=== PATIENT | male | born 1975 | race Two or more races ===

== ENCOUNTER → 2024-05-25 | Outpatient (CLI) | payer OTHER, MEDICAID, SELFPAY | END | disposition home or self-care (01) | PROVIDERS: PCP Family Medicine; Referring Provider Family Medicine; Visit Provider Student in an Organized Health Care Education/Training Program | DX: L89.319 Pressure ulcer of right buttock, unspecified stage (principal); L89.313 Pressure ulcer of right buttock, stage 3; F17.200 Nicotine dependence, unspecified, uncomplicated; D64.9 Anemia, unspecified; G82.20 Paraplegia, unspecified; Q89.01 Asplenia (congenital) | CPT/HCPCS: 11042; 11045 ×2; A9270 ==

== ENCOUNTER 2024-06-25 10:51 | Emergency (ER) | payer OTHER, MEDICAID, SELFPAY ==
[2024-06-25 10:53] VITALS: BP 132/89; PULSE 86; RESP 18; TEMP 36.6; O2SAT 100; BMI 25.7
--- NOTE | 2024-06-25 11:00 | PC.NURSE ---
Pt [place] from home, pt paraplegic. states that he woke up and his catheter was partially out and that he had blood coming from his penis so he pulled it the rest of the way out.
--- NOTE | 2024-06-25 11:28 | EDNOTE_ITS ---
ED Male Genitalurinary RME/HPI General Chief complaint: Urogenital-Male Stated complaint: BLEEDING FROM PENIS Time Seen by Provider: 06/25/24 11:04 Arrival date/time: 06/25/24 10:51 RME / HPI RME / HPI Narrative: 49-year-old male patient, T10 paraplegia, came in with EMS for evaluation regarding Douglas catheter malfunction. Patient noticed that his catheter is almost out, woke up this morning, with completely out, and hematuria. Patient now complaining of suprapubic distention. Denies any fever denies any other complaints no medications taken prior to arrival. Related Data Home Medications ?Medication ?Instructions ?Recorded ?Confirmed diphenhydramine HCl 25 mg capsule 25 mg PO Q6HR PRN SLEEPLESSNESS #0 06/20/17 02/15/23 caps Previous Rx's ?Medication ?Instructions ?Recorded levofloxacin 500 mg tablet 500 mg PO QDAY #7 tabs 02/19/23 melatonin 5 mg capsule 5 mg PO HS PRN insomnia 30 days 03/10/23 #30 caps ciprofloxacin HCl 500 mg tablet 500 mg PO BID #14 tabs 02/25/24 cefuroxime axetil 500 mg tablet 500 mg PO BID #20 tabs 06/25/24 doxycycline hyclate 100 mg capsule 100 mg PO BID #20 caps 06/25/24 Allergies Allergy/AdvReac Type Severity Reaction Status Date / Time No Known Allergies Allergy Verified 06/25/24 11:28 Review of Systems Review of Systems Narrative Review of Systems: Review of system reviewed and within normal limits except mentioned in HPI ED Exam Narrative Physical exam: VITAL SIGNS: Reviewed. GENERAL APPEARANCE: Alert and interactive, follows commands, no acute distress, HEAD AND FACE: Non-traumatic. ENT: PERRL, pink conjunctivitis, eyelid no trauma, Mucous membrane moist. NECK: Supple, nontender, no nuchal rigidity. CHEST: No tenderness, no crepitus, no paradoxical movement, no retractions. LUNGS: Clear, well ventilated, symmetric, no rales, no wheezing, no ronchi, no stridor, good breath sounds bilaterally. HEART: Regular rate, regular rhythm, no murmur, no gallops. ABDOMEN: Soft, positive bowel sounds, nondistended, no guarding, nontender, no rebound, no masses, RECTAL: Chronic ulcer noted with good granulation tissue noted on the right but tock area GENITAL: Deferred. NEUROLOGICAL: Gross motor function intact sensory function intact upper extremity, no gross motor movement and anesthesia T10 and below, Appropriate for age. MUSCULOSKELETAL: low back nontender, full range of motion. EXTREMITIES: Nontender, full range of motion. SKIN: Color pink, dry, no rash, no lacerations, no abrasions, no contusions. LYMPHATICS: Deferred. Course Quality Measures none Orders Category Date Time Status Douglas [Urinary Catheter] QS Care 06/25/24 11:[address] abdomen pelvis wo con Stat Exams 06/25/24 14:45 Completed Blood Culture (Lab) Stat Lab 06/25/24 16:26 Ordered CBC [CBC] Stat Lab 06/25/24 11:28 Ordered CMP [Comprehensive Metabolic Panel] Stat Lab 06/25/24 11:28 Ordered Lactate (Lactic Acid) Stat Lab 06/25/24 16:26 Ordered Procalcitonin Stat Lab 06/25/24 16:26 Ordered UA, C/S IF [Urinalysis, C/S if Indicated] Stat Lab 06/25/24 15:22 Completed Acetaminophen Supp [Tylenol Supp] Med 06/25/24 16:26 Discontinued 650 mg NM X1 ONE HYDROcodone/APAP 10/325 [Lutcher 10/325] Med 06/25/24 14:45 Discontinued 1 tab PO X1 ONE Lidocaine 1% Pf 5 ml [Xylocaine 1% Pf 5 ml] Med 06/25/24 16:35 Discontinued 2 ml INFL X1 ONE Sodium Chloride 0.9% 1000 ml [Ns] 1,000 ml Med 06/25/24 13:00 Discontinued IV 999 mls/hr cefTRIAXone [Rocephin] 1,000 mg Med 06/25/24 16:36 Discontinued Lidocaine 1% 20 ml [Xylocaine 1% 20 ML] 2.1 ml IM X1 Vital Signs Vital signs: Vital Signs Temperature 97.8 F 06/25/24 10:53 Pulse Rate 86 06/25/24 10:53 Respiratory Rate 18 06/25/24 10:53 Blood Pressure 132/89 H 06/25/24 10:53 Pulse Oximetry (%) 100 06/25/24 10:53 Oxygen Delivery Method Room Air 06/25/24 10:53 Urogenital - Male MDM Narrative MDM Narrative:: 49-year-old male patient, T10 paraplegia, came in with EMS for evaluation regarding Douglas catheter malfunction. Patient noticed that his catheter is almost out, woke up this morning, with completely out, and hematuria. Patient now complaining of suprapubic distention. Denies any fever denies any other complaints no medications taken prior to arrival. Patient refused IV lab draws. CT scan of the abdomen pelvis showed Again noted 6.5 cm pleural base mass left lower lobe Interval numerous pulmonary nodules at the left lung base, the largest 11 mm, recommend CT chest without contrast follow-up to exclude interval pulmonary nodular metastatic disease Mild to moderate bilateral renal parenchymal scar formation, no renal calculi or ureteral calculi Normal appendix Marked thickening of the urinary bladder wall, consider cystitis, mild hyperdensity in the urinary bladder consistent with blood clot Again noted large infectious mass/abscess with necrotic center in the right buttock region 10.6 x 7.0 x 7.4 cm with osteomyelitis right ischium Patient data External records reviewed:: None Clinical information provided by:: patient Social determinants that could affect healthcare access:: none Patient has the following chronic illnesses:: T10 paraplegia none How is presenting disease/condition affected by chronic disease/condition?: exacerbated by Evaluation data The following diagnostics were reviewed and interpreted by me:: lab results and radiology exam(s) Lab and/or radiology exams considered but not ordered:: None Interpretation Summary: Urinalysis significant for hematuria and UTI. CT scan of the abdomen and pelvis showed Again noted 6.5 cm pleural base mass left lower lobe Interval numerous pulmonary nodules at the left lung base, the largest 11 mm, recommend CT chest without contrast follow-up to exclude interval pulmonary nodular metastatic disease Mild to moderate bilateral renal parenchymal scar formation, no renal calculi or ureteral calculi Normal appendix Marked thickening of the urinary bladder wall, consider cystitis, mild hyperdensity in the urinary bladder consistent with blood clot Again noted large infectious mass/abscess with necrotic center in the right buttock region 10.6 x 7.0 x 7.4 cm with osteomyelitis right ischium Medications / Prescriptions Medications or Prescriptions considered but not ordered:: None Medication administrations:: Medication Administration History Discontinued Medications Acetaminophen (Acetaminophen Supp 650 Mg Supp) 650 mg NM X1 ONE Stop: 06/25/24 16:27 Last Admin: 06/25/24 16:58 Dose: 650 mg Documented By: Hydrocodone Bitart/Acetaminophen (Hydrocodone/Apap 10/325 Tab) 1 tab PO X1 ONE Stop: 06/25/24 14:46 Last Admin: 06/25/24 15:18 Dose: 1 tab Documented By: JOSUE Ceftriaxone Sodium 1,000 mg/ (Lidocaine HCl 2.1 ml) 0 mg IM X1 ONE Stop: 06/25/24 16:37 Last Admin: 06/25/24 17:03 Dose: 1,000 mg Documented By: MAO Comments: Sodium Chloride (Ns) 1,000 mls @ 999 mls/hr IV .Q1H1M ONE Stop: 06/25/24 14:00 Last Admin: 06/25/24 13:17 Dose: Not Given Documented By: JOSUE Non-Admin Reason: Patient Refused Lidocaine HCl (Lidocaine Inj Pf 1% 5 Ml Vial) 2 ml INFL X1 ONE Stop: 06/25/24 16:36 Last Admin: 06/25/24 17:02 Dose: Not Given Documented By: MAO Non-Admin Reason: Other, see note Ceftriaxone IM, Tylenol suppositories, Lutcher Consultations Consultation(s) initiated? (list below): No Diagnosis Urogenital Male Differential Diagnosis: urinary tract infection and other (Abdominal pain, dislodgment of Douglas catheter) Most likely diagnosis given after review of the tests above:: Dislodgment of Douglas catheter, urinary tract infection, chronic pressure ulcer buttocks Admission Indicated Admission indicated?: not indicated Admission Request Was there a request for admission?: No Disposition Plan Disposition Plan: other (specify) (Patient discharged AGAINST MEDICAL ADVICE) Discharge Plan Plan Patient Disposition: Left Against Medical Advice Prescriptions/Referrals Prescriptions/Med Rec: New doxycycline hyclate 100 mg capsule 100 mg PO BID Qty: 20 0RF cefuroxime axetil 500 mg tablet 500 mg PO BID Qty: 20 0RF No Action diphenhydramine HCl 25 MG capsule 25 mg PO Q6HR PRN (Reason: SLEEPLESSNESS) Qty: 0 levofloxacin 500 mg tablet 500 mg PO QDAY Qty: 7 0RF ciprofloxacin HCl 500 mg tablet 500 mg PO BID Qty: 14 0RF melatonin 5 mg capsule 5 mg PO HS PRN (Reason: insomnia) 30 Days Qty: 30 2RF Referrals: Danis Yan MD [Primary Care Provider] - In 1 week Problem List Clinical Impression: Dislodged Douglas catheter, UTI (urinary tract infection), Paraplegia, complete Patient/Caregiver Discharge Instructions Print Language: Divehi
--- NOTE | 2024-06-25 12:23 | PC.NURSE ---
AFTER MULTIPLE ATTEMPTS TO REACH DISTRIBUTION, DISTRIBUTION WILL SEND UP A CATH PLUG IN ORDER TO DO 3 WAY CATH. PT CONTINUES TO REFUSE LABS.
[2024-06-25 13:00] VITALS: BP 134/80; PULSE 79; RESP 18; TEMP 36.5; O2SAT 100
--- NOTE | 2024-06-25 13:17 | PC.NURSE ---
Pt refused IV for fluids, provider made aware. Pt given pitcher of water to drink. 3-way catheter placed by CONNIE Ramirez, urine was coming out until plug inserted, then urine stopped all together. Attempting to hydrate pt, to see if pt is producing urine.
[2024-06-25 14:44] VITALS: TEMP 37.3
--- NOTE | 2024-06-25 14:45 | XR_ITS ---
Examination: CT abdomen and pelvis without contrast. Coronal 3-D reconstructions. Sagittal 2-D reconstructions. Date and time of exam:June 25, 2024 1530 hrs. Indications: Generalized abdominal pain beginning today CTDI: vol (mGy): 8.99 DLP: (mGycm): 604 Technique: Axial images of the abdomen have been obtained, 3 mm slice thickness Intravenous contrast material has not been administered. Low dose protocols were performed. One or more of the following dose reduction techniques were used; automated exposure control, adjustment of the mA and/or KV according to patient size, use of iterative reconstruction technique. Findings: Again noted 6.5 cm pleural-based mass left lower lobe with numerous new pulmonary nodules in the left lower lobe No interval liver lesion Suspicious for gallbladder sludge No pancreatic or adrenal mass Mild to moderate bilateral renal parenchymal scar formation No renal or ureteral calculi Aorta normal size IVC filter Normal appendix No bowel obstruction Marked thickening of the urinary bladder wall with subtle hyperdensity in the urinary bladder wall axial image 212, urinary Douglas catheter Transverse prostate dimension 4.4 cm Again noted right buttock perineal large infectious mass with necrotic center, the mass measuring at least 10.6 x 7.0 x 7.4 cm Osteomyelitis right ischium Partial visualization edema in the scrotum Impression: Again noted 6.5 cm pleural base mass left lower lobe Interval numerous pulmonary nodules at the left lung base, the largest 11 mm, recommend CT chest without contrast follow-up to exclude interval pulmonary nodular metastatic disease Mild to moderate bilateral renal parenchymal scar formation, no renal calculi or ureteral calculi Normal appendix Marked thickening of the urinary bladder wall, consider cystitis, mild hyperdensity in the urinary bladder consistent with blood clot Again noted large infectious mass/abscess with necrotic center in the right buttock region 10.6 x 7.0 x 7.4 cm with osteomyelitis right ischium
[2024-06-25] MEDS: HYDROcodone/APAP 10/325 TAB PO (15:18)
[2024-06-25 15:31] LABS: Collection Type, Urine Catheter
[2024-06-25 15:54] LABS: Bacteria,Urine 4+; Bilirubin,Urine Negative (Negative); Blood,Urine 3+ (Negative); Color,Urine Brown (Lt Yel-Yel); Culture Indicated,Urine Contaminated; Glucose, Urine Negative (Negative); Ketones,Urine Negative (Negative); Leukocyte Esterase,Urine Positive (Negative); Nitrite,Urine Negative (Negative); PH,Urine 5.5 (5.0-7.0); Protein,Urine 1+ (Neg - Trace); RBC,Urine 8406 /hpf (0-3); Specific Gravity,Urine 1.011 (1.001-1.035); Squamous Epithelial Cell,Urine 12 /hpf (0-5); Urobilinogen,Urine Negative mg/dL (0.0-1.0); WBC,Urine 172 /hpf (0-5)
[2024-06-25 16:16] VITALS: BP 131/78; PULSE 101; RESP 20; TEMP 38.3; O2SAT 98
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
[2024-06-25 16:27] LABS: Clarity,Urine Cloudy (Clear/Hazy)
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
[2024-06-25 16:58] VITALS: TEMP 38.3
[2024-06-25] MEDS: ACETAMINOPHEN SUPP 650 MG SUPP PR (16:58)
[2024-06-25] MEDS: cefTRIAXone 1,000 MG, LIDOCAINE 1% 20 ML 2.1 ML IM (17:03)
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
[2024-06-25 18:08] VITALS: BP 126/79; PULSE 88; RESP 20; TEMP 37.3; O2SAT 98
== END 2024-06-25 18:23 | disposition left against medical advice (07) ==
PROVIDERS: Nurse Practitioner Family; Emergency Provider Emergency Medicine; PCP Family Medicine
DX: T83.021A Displacement of indwelling urethral catheter, initial encounter (principal); N39.0 Urinary tract infection, site not specified; G82.21 Paraplegia, complete; Y84.6 Urinary catheterization as the cause of abnormal reaction of the patient, or of later complication, without mention of misadventure at the time of the procedure
CPT/HCPCS: 51702; 74176; 80053; 81001; 83605; 84145; 85025; 87040; 96372; 99284; J0696; J3490; A9270

== ENCOUNTER 2024-06-26 20:48 | Emergency (ER) | payer OTHER, MEDICAID, SELFPAY ==
[2024-06-26] VITALS (13 sets, daily range): BP systolic 146–170; BP diastolic 86–105; PULSE 74–86; RESP 21–39; TEMP 37.1; O2SAT 95–100
--- NOTE | 2024-06-26 20:59 | PC.NURSE ---
stroke consult Case # [id number]
--- NOTE | 2024-06-26 21:00 | EDNOTE_ITS ---
Neuro Symptoms Deficit-RME/HPI General Chief Complaint: Weakness Stated Complaint: WEAKNESS Time Seen by Provider: 06/26/24 21:11 Arrival date/time: 06/26/24 20:48 RME / HPI RME / HPI Narrative: Dr. Morel?s Main ED Evaluation: 49yo male who is paraplegic presents to the ED for a chief complaint of neurological symptoms since last night. Patient states he started having LUE weakness and numbness after he left AMA from here yesterday. He reports being unable to swallow. He falls or injuries. He denies any other associated symptoms. No known allergies. Related Data Home Medications ?Medication ?Instructions ?Recorded ?Confirmed diphenhydramine HCl 25 mg capsule 25 mg PO Q6HR PRN SLEEPLESSNESS #0 06/20/17 02/15/23 caps Previous Rx's ?Medication ?Instructions ?Recorded levofloxacin 500 mg tablet 500 mg PO QDAY #7 tabs 02/19/23 melatonin 5 mg capsule 5 mg PO HS PRN insomnia 30 days 03/10/23 #30 caps ciprofloxacin HCl 500 mg tablet 500 mg PO BID #14 tabs 02/25/24 cefuroxime axetil 500 mg tablet 500 mg PO BID #20 tabs 06/25/24 doxycycline hyclate 100 mg capsule 100 mg PO BID #20 caps 06/25/24 Allergies Allergy/AdvReac Type Severity Reaction Status Date / Time No Known Allergies Allergy Verified 06/25/24 11:28 Review of Systems Review of Systems Systems Reviewed: All systems reviewed, normal except as documented Past Medical History Past Medical History NEUROLOGIC: Positive Neurological Disorders, Paralysis and Spinal Cord Injury; Negative Cerebrovascular Accident or Seizures CARDIAC: Negative Cardiac Disorders, Myocardial Infarction, Hypercholesterolemia, Congestive Heart Failure or Hypertension RESPIRATORY: Positive Pulmonary Embolism; Negative Chronic Obstructive Pulmonary Disease (COPD), Asthma, Bronchitis or Pulmonary Edema GASTROINTESTINAL: Negative Gastrointestinal Disorders, Gastrointestinal Bleed, Hemorrhoids or Gastroesophageal Reflux Disease GENITOURINARY: Positive Genitourinary Disorders and Kidney Stones; Negative Renal Disease or Benign Prostatic Hyperplasia REPRODUCTIVE: Negative Testicular Cancer MUSCULOSKELETAL: Positive Musculoskeletal Disorders; Negative Arthritis, Rheumatoid Arthritis, Osteoporosis, Scoliosis or Fibromyalgia ENT: Negative Blind or Deafness ENDOCRINE: Negative Endocrine Disorders, Diabetes Mellitus Type 1, Diabetes Mellitus Type 2, Hyperthyroidism or Hypothyroidism HEMATOLOGIC: Positive Clotting Problems; Negative Blood Disorders, Anemia or Sickle Cell Disease PSYCHO/SOCIAL: Positive Depression and Anxiety; Negative Recreational Drug Use OTHER HISTORY: Positive Hospitalization and Blood Transfusions; Negative Autoimmune Disease, Blood Transfusion Reaction, Anesthesia Reactions, Cancer or Testicular Cancer Family History FAMILY HISTORY: Positive Family Cancer and Family Surgery; Negative Family Psychiatric Problems, Family Respiratory Disorders, Family Cardiac Disorders, Family Gastrointestinal Problems or Family Anesthesia Reaction Surgical History SURGICAL: Positive Cardiac Surgery (Vena cava fliter) Social History SMOKING STATUS: Current every day smoker ED Exam Narrative Physical exam: GENERAL APPEARANCE: alert and oriented x 4, well-developed, well-nourished, is actively vomiting, no acute distress VITALS: All vitals were reviewed and the pulse ox is 95% on room air, which is normal according to my interpretation. HEENT: Normocephalic, atraumatic; pupils equal, round, reactive to light; has rotatory nystagmus; mucous membranes pink, moist; oropharynx clear NECK: Supple LUNGS: CTABL; no wheezes, no rales, no rhonchi HEART: Regular rate, regular rhythm; normal S1, S2; no murmurs ABDOMEN: non distended; normal BS; soft, no tenderness, no guarding, no rebound; no masses, no organomegaly, no hernia BACK: no CVA tenderness EXTREMITIES: atraumatic; no edema; moves BUE without any difficulty; does not move BLE due to being paraplegic NEUROLOGIC: awake; alert and oriented x4; has a left facial droop; sensory deficits to the left face and arm PSYCHIATRIC: appropriate mood and affect SKIN: warm, dry, normal color; no rashes Course Course Course Narrative: 2106: Informed the patient does not want an IV placed at this time. 2144: Discussed case with [Dr. Iyer] from [neurosurgeon from [facility]] regarding [possible transfer]. Discussed patients ED course, exam findings, labs, and radiology results. Agrees to consult. 2157: Discussed case with [Dr. Aggarwal] from [neurologist from [facility]] regarding possible transfer. Discussed patients ED course, exam findings, labs, and radiology results. Accepts the patient for transfer. Quality Measures Suspected type of Stroke: Acute Ischemic Tenecteplase given: Reason(s) TPA not given: Outside the time window not given stroke Orders Category Date Time Status Bedside Blood Glucose NOW Care 06/26/24 21:12 Completed Installer Apprentice NOW Care 06/26/24 21:12 Completed Continuous Pulse Oximetry NOW Care 06/26/24 21:12 Completed EKG (ED ONLY) *Do not use* NOW Care 06/26/24 21:12 Completed In and Out Catheter NEEDED Care 06/26/24 21:12 Completed Insert IV NOW Care 06/26/24 21:12 Completed NIH Stroke Scale now Care 06/26/24 21:12 Completed NPO NOW Care 06/26/24 21:12 Completed Nurse Swallow Screen x1 Care 06/26/24 21:12 Completed Consult to Neurology / Tele-Neurology Routine Cons 06/26/24 21:[address] angio stroke protocol Stat Exams 06/26/24 21:[address] stroke protocol Stat Exams 06/26/24 21:12 Completed EKG (ED Only) Stat Exams 06/26/24 21:12 Draft Alcohol, Blood Medical Stat Lab 06/26/24 22:32 Completed CBC Stat Lab 06/26/24 22:32 Completed Comprehensive Metabolic Panel Stat Lab 06/26/24 22:32 Completed Drug Screen,Urine Stat Lab 06/26/24 22:27 Completed Magnesium Stat Lab 06/26/24 22:32 Completed Partial Thromboplastin Time Stat Lab 06/26/24 22:32 Completed Prothrombin Time with INR Stat Lab 06/26/24 22:32 Completed Troponin I Stat Lab 06/26/24 22:32 Completed Urinalysis Stat Lab 06/26/24 22:27 Completed Aspirin Supp Med 06/26/24 21:26 Discontinued 300 mg GA X1 ONE Vital Signs Vital signs: Vital Signs Pulse Rate 86 06/26/24 20:53 Respiratory Rate 22 H 06/26/24 20:53 Blood Pressure 146/86 H 06/26/24 20:53 Pulse Oximetry (%) 95 06/26/24 20:53 Oxygen Delivery Method Room Air 06/26/24 20:53 Neuro Symptoms / Deficit MDM Narrative MDM Narrative:: Scribe Attestation: 06/26/24 Cass Mosley am scribing for and in the presence of Dr. Morel. Patient data External records reviewed:: [facility] previous records (Per chart review, patient was seen here yesterday for a dislodged latif catheter.) Clinical information provided by:: patient and EMS Social determinants that could affect healthcare access:: none Patient has the following chronic illnesses:: paraplegia, kidney stones How is presenting disease/condition affected by chronic disease/condition?: uneffected by Evaluation data The following diagnostics were reviewed and interpreted by me:: lab results, radiology exam(s) and EKG tracing(s) Lab and/or radiology exams considered but not ordered:: none Interpretation Summary: EKG done at 2153, NSR, rate of 75, left axis deviation, no ectopy, QRS: 142, QTc: 438, no STEMI, according to my interpretation. ---- [place] [facility] Report Signed Patient: ALYSIA FLOWERS Record#: [id number] Birthdate: 1975 Age/Sex: 49 / M Location: [facility] Attending Dr: Ordering Physician: Gregg Morel MD Date of Service: 06/26/24 Procedure(s): CT stroke protocol Accession Number(s): [id number] cc: Kapil Chino MD; Gregg Morel MD~ Examination: CT brain head without contrast. 2-D sagittal coronal reconstructions Date and time of exam: June 26, 2024 2114 hrs. Indications: Stroke alert, onset focal neurologic deficit beginning 2 days ago CTDI: vol (mGy):54.5 DLP: (mGycm):1170 Technique: Multiple CT axial sections of the brain have been obtained, 5 mm slice thickness. Contrast has not been administered. 2-D sagittal, coronal reconstructions have been obtained Low dose protocols were performed. One or more of the following dose reduction techniques were used; automated exposure control, adjustment of the mA and/or KV according to patient size, use of iterative reconstruction technique. Findings: No significant ventricular enlargement. Bilateral acute cerebellar infarcts, the infarct on the left side is large, at least 4.4 x 2.2 cm Intra-axial or extra-axial hemorrhage density is not seen. Mild mass effect upon the fourth ventricle secondary to the left cerebellar infarct Basal cisterns are not remarkable. Fourth ventricle is midline. Cranial vault intact. Impression: Bilateral acute cerebellar infarcts, the infarct on the left side is large, both are nonhemorrhagic Dictated By: Kapil Chino MD Signed By: <Electronically signed by Kapil Chino MD in OV> 06/26/245 Medications / Prescriptions Medications or Prescriptions considered but not ordered:: none Medication administrations:: Medication Administration History Discontinued Medications Aspirin (Aspirin 300 Mg Supp) 300 mg GA X1 ONE Stop: 06/26/24 21:27 Last Admin: 06/26/24 21:50 Dose: 300 mg Documented By: KD see above Consultations Consultation(s) initiated? (list below): Yes Consultation #1 (Physician, Specialty, Details): Discussed case with [Dr. Osborn] from [teleneurology] regarding [consultation]. Discussed patients ED course, exam findings, labs, and radiology results. States the patient needs to be transferred for neurosurgery out of concern for a craniotomy. No tPA due to the patient's symptoms being outside of the 4 hour window. Time: 21:24 Diagnosis Neuro Differential Diagnosis: cerebrovascular accident and other (TIA, cerebellar stroke) Most likely diagnosis given after review of the tests above:: see below Admission Indicated Admission indicated?: not indicated Explain why admission is indicated or not indicated:: Patient requires a higher [id number]. Admission Request Was there a request for admission?: No Disposition Plan Disposition Plan: Transfer (to [facility]) Critical Care Time Critical Care Time Critical Care Time: Yes Total Critical Care Time (min.): 50 Attestation: The high probability of sudden, clinically significant deterioration in the patient?s condition required the highest level of my preparedness to intervene urgently. The services I provided to this patient were to treat and/or prevent clinically significant deterioration. Services included the following: chart data review, reviewing nursing notes and/or old charts, documentation time, party plan sales consultant collaboration regarding findings and treatment options, medication orders and management, direct patient care, vital sign assessments and ordering, interpreting and reviewing diagnostic studies and lab tests. Aggregate critical care time includes only time during which I was engaged in work directly related to the patient?s care, as described above, whether at bedside or elsewhere in the Emergency Department. It did not include time spent performing other reported procedures or the services of residents, students, nurses or physician assistants. Discharge Plan Plan Patient Disposition: [facility] Care [facility] Facility Pt Being Transferred to: [facility] Service Needed for Transfer: Neurology Disposition Comment: Accepted by Dr. Aggarwal, Dr. Iyer to consult Prescriptions/Referrals Prescriptions/Med Rec: No Action diphenhydramine HCl 25 MG capsule 25 mg PO Q6HR PRN (Reason: SLEEPLESSNESS) Qty: 0 levofloxacin 500 mg tablet 500 mg PO QDAY Qty: 7 0RF ciprofloxacin HCl 500 mg tablet 500 mg PO BID Qty: 14 0RF melatonin 5 mg capsule 5 mg PO HS PRN (Reason: insomnia) 30 Days Qty: 30 2RF doxycycline hyclate 100 mg capsule 100 mg PO BID Qty: 20 0RF cefuroxime axetil 500 mg tablet 500 mg PO BID Qty: 20 0RF Problem List Clinical Impression: Ac ischemic VBA cerebellar stroke Patient/Caregiver Discharge Instructions Print Language: Tamazight Stand Alone Forms: Bere Award Info., Patient Portal Info Letter
--- NOTE | 2024-06-26 21:12 | XR_ITS ---
Examination: CT brain head without contrast. 2-D sagittal coronal reconstructions Date and time of exam: June 26, 2024 2114 hrs. Indications: Stroke alert, onset focal neurologic deficit beginning 2 days ago CTDI: vol (mGy):54.5 DLP: (mGycm):1170 Technique: Multiple CT axial sections of the brain have been obtained, 5 mm slice thickness. Contrast has not been administered. 2-D sagittal, coronal reconstructions have been obtained Low dose protocols were performed. One or more of the following dose reduction techniques were used; automated exposure control, adjustment of the mA and/or KV according to patient size, use of iterative reconstruction technique. Findings: No significant ventricular enlargement. Bilateral acute cerebellar infarcts, the infarct on the left side is large, at least 4.4 x 2.2 cm Intra-axial or extra-axial hemorrhage density is not seen. Mild mass effect upon the fourth ventricle secondary to the left cerebellar infarct Basal cisterns are not remarkable. Fourth ventricle is midline. Cranial vault intact. Impression: Bilateral acute cerebellar infarcts, the infarct on the left side is large, both are nonhemorrhagic
--- NOTE | 2024-06-26 21:12 | EKG_ITS ---
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
--- NOTE | 2024-06-26 21:20 | PC.NURSE ---
PATIENT CURRENTLY IN CT WITH PRIMARY NURSE, ZHAO.
--- NOTE | 2024-06-26 21:42 | ESCONSULT_ITS ---
Tele Neuro Consultation Consultation Date 06/26/24 Most Recent Vital Signs Last Vital Signs Pulse 86 06/26/24 20:53 Resp 22 H 06/26/24 20:53 BP 146/86 H 06/26/24 20:53 Pulse Ox 95 06/26/24 20:53 O2 Del Method Room Air 06/26/24 20:53 Consultation Narrative [facility] Tele[facility]rology Consult Services Patient Name:???Dino Guidry Date of :???1975 Identification Number:??? Date of Service:???06/26/2024 20:58:54 Diagnosis:?I63.342 - Cerebrovascular accident (CVA) due to thrombosis of left cerebellar artery (HCCC) Impression: ?Dino Guidry is a 49 y.o. man with a history of T10 spinal cord injury with paraplegia, R buttock abscess, left lower lobe pleural based mass who presents to the ER with L arm numbness, inability to control the L arm, and inability to swallow. Symptoms started some time last night after he received pain medication in the ER. He was in the ER yesterday for bleeding from his penis. Patient says this has never happened before. He complains of bad L sided headache and denies getting headaches on a regular basis. Denies any change in vision. Has trouble moving his L arm. Has trouble speaking and voice is coming out as a hoarse whisper. He has been dizzy and vomiting all day. NIHSS 16. Patient has baseline paraplegia. Exam is also notable for L visual field deficit, L facial droop, L arm drift, L>R upper extremity ataxia, L face/arm tingling, dysphonia/dysarthria. Non contrast head CT shows a completed L PICA infarct involving the L inferior cerebellum and L medulla. There is a smaller R PICA infarct as well. Mechanism of stroke is unclear at this time. Given his young age and the headache, he may have bilateral vertebral artery dissections. Recommendations: - STAT CTA head/neck - patient may need to be transferred as he may need decompressive suboccipital craniotomy if he develops malignant cerebral edema (young age with large posterior fossa stroke) - Start aspirin 325 mg daily for secondary stroke prevention when he has PO access (300 mg ID daily while no PO access) - Start atorvastatin 80 mg daily for secondary stroke prevention when there is PO access, goal LDL <70 - Permissive hypertension up to 220/120 x 24 hours; then goal BP normotensive - Continuous cardiac monitoring to evaluate for paroxysmal atrial fibrillation - MRI brain without contrast to evaluate extent of acute ischemia - Send routine stroke labs including HbA1c, fasting lipid panel - PT/OT/ST evaluation when able Our recommendations are outlined below. Recommendations: ? Stroke/Telemetry Floor ? Neuro Checks ? Bedside Swallow Eval ? DVT Prophylaxis ? IV Fluids, Normal Saline ? Head of Bed 30 Degrees ? Euglycemia and Avoid Hyperthermia (PRN Acetaminophen) ? Aspirin per rectum ? Antihypertensives PRN if Blood pressure is greater than 220/120 or there is a concern for End organ damage/contraindications for permissive HTN. If blood pressure is greater than 220/120 give labetalol PO or IV or Vasotec IV with a goal of 15% reduction in BP during the first 24 hours. Sign Out: ? Discussed with Emergency Department Provider Advanced Imaging:Advanced imaging has been ordered. Results pending. Metrics: Last Known Well: Unknown Dispatch Time: 06/26/2024 20:58:54 Arrival Time: 06/26/2024 20:48:00 Initial Response Time: 06/26/2024 21:01:16Symptoms: L arm numbness, inability to control the L arm, speech difficulty, inability to swallow. Initial patient interaction: 06/26/2024 21:03:18 NIHSS Assessment Completed: 06/26/2024 21:11:23Patient is not a candidate for Thrombolytic. Thrombolytic Medical Decision: 06/26/2024 21:11:24Patient was not deemed candidate for Thrombolytic because of following reasons: LKW outside 4.5 hr window. . I personally Reviewed the CT Head and it Showed an acute/subacute L PICA infarct involving the L inferior cerebellum and L medulla. There is a smaller R PICA infarct as well. Primary Provider Notified of Diagnostic Impression and Management Plan on: 06/26/2024 21:27:01 History of Present Illness:Patient is a 49 year old Male. Patient was brought by EMS for symptoms of L arm numbness, inability to control the L arm, speech difficulty, inability to swallow. Dino Guidry is a 49 y.o. man with a history of T10 spinal cord injury with paraplegia, R buttock abscess, left lower lobe pleural based mass who presents to the ER with L arm numbness, inability to control the L arm, and inability to swallow. Symptoms started some time last night after he received pain medication in the ER. He was in the ER yesterday for bleeding from his penis. Patient says this has never happened before. He complains of bad L sided headache and denies getting headaches on a regular basis. Denies any change in vision. Has trouble moving his L arm. Has trouble speaking and voice is coming out as a hoarse whisper. He has been dizzy and vomiting all day. ? Past Medical History: Other PMH:? T10 spinal cord injury with paraplegia, R buttock abscess, left lower lobe pleural based mass Medications: No Anticoagulant use? No Antiplatelet use Reviewed EMR for current medications Allergies:? Reviewed,NKDA Social History: Smoking: Yes Alcohol Use: No Drug Use: No Family History: There is no family history of premature cerebrovascular disease pertinent to this consultation ROS : 14 Points Review of Systems was performed and was negative except mentioned in HPI. Past Surgical History: There Is No Surgical History Contributory To Today?s Visit ? Examination: BP(152/95),?Pulse(77), 1A: Level of Consciousness - Alert; keenly responsive?+ 0 1B: Ask Month and Age - Both Questions Right?+ 0 1C: Blink Eyes & Squeeze Hands - Performs Both Tasks?+ 0 2: Test Horizontal Extraocular Movements - Normal?+ 0 3: Test Visual Saldivar - Complete Hemianopia?+ 2 4: Test Facial Palsy (Use Grimace if Obtunded) - Minor paralysis (flat nasolabial fold, smile asymmetry)?+ 1 5A: Test Left Arm Motor Drift - Drift, but doesn't hit bed?+ 1 5B: Test Right Arm Motor Drift - No Drift for 10 Seconds?+ 0 6A: Test Left Leg Motor Drift - No Movement?+ 4 6B: Test Right Leg Motor Drift - No Movement?+ 4 7: Test Limb Ataxia (FNF/Heel-Warren) - Ataxia in 2 Limbs?+ 2 8: Test Sensation - Mild-Moderate Loss: Less Sharp/More Dull?+ 1 9: Test Language/Aphasia - Normal; No aphasia?+ 0 10: Test Dysarthria - Mild-Moderate Dysarthria: Slurring but can be understood?+ 1 11: Test Extinction/Inattention - No abnormality?+ 0 NIHSS Score:?16 NIHSS Free Text :?L face/arm tingling, no sensation in either leg (chronic); BUE ataxia L>R; L visual field deficit; dysphonia Pre-Morbid Modified Ray Scale:4 Points = Moderately severe disability; unable to walk and attend to bodily needs without assistance Spoke with :?Dr. Morel This consult was conducted in real time using interactive audio and video technology. Patient was informed of the technology being used for this visit and agreed to proceed. Patient located in hospital and provider located at home/office setting. Patient is being evaluated for possible acute neurologic impairment and high probability of imminent or life-threatening deterioration. I spent total of 35 minutes providing care to this patient, including time for face to face visit via telemedicine, review of medical records, imaging studies and discussion of findings with providers, the patient and/or family. Dr Rupinder Osborn [facility] For Inpatient follow-up with [facility] physician please call [facility] at . As we are not an outpatient service for any post hospital discharge needs please contact the hospital for assistance. If you have any questions for the [facility] physicians or need to reconsult for clinical or diagnostic changes please contact us via [facility] at .
[2024-06-26] MEDS: ASPIRIN 300 MG SUPP PR (21:50)
--- NOTE | 2024-06-26 22:08 | PC.NURSE ---
5 attempts to start IV unsuccessful
--- NOTE | 2024-06-26 22:35 | PC.NURSE ---
[id number] PT ACCEPTED TO [facility] ED TO ED BY DR DANIEL, REPORT TO [phone].
[2024-06-26 22:38] LABS: Collection Type, Urine Clean Catch
[2024-06-26 22:43] LABS: Basophils # (Auto) 0.1 Thou/mm3 (0.0-0.2); Basophils % (Auto) 1 % (0-2.5); Eosinophils % (Auto) 0 % (0-10); Hematocrit 39.9 % (41.0-53.0); Hemoglobin 12.5 g/dL (13.5-16.0); Immature Granulocytes % (Auto) 1 % (0-0); Immature Granulocytes Auto 0.07 Thou/mm3 (0.00-0.00); Lymphocytes % (Auto) 6 % (10-50); Mean Corpuscular HGB Conc 31.3 g/dl (31.0-37.0); Mean Corpuscular Hemoglobin 24.9 pg (25.0-35.0); Mean Corpuscular Volume 80 fL (80-100); Monocytes # (Auto) 0.7 Thou/mm3 (0.0-0.8); Monocytes % (Auto) 5 % (0-12); Neutrophils # (Auto) 13.3 Thou/mm3 (1.8-7.7); Neutrophils % (Auto) 88 % (37-80); Nucleated Red Blood Cell % 0 /100 WBC (0); Platelet Count 457 Thou/mm3 (140-440); Red Blood Count 5.02 Miln/mm3 (4.50-5.90); White Blood Count 15.2 Thou/mm3 (3.8-10.6)
[2024-06-26 22:53] LABS: Bilirubin,Urine Negative (Negative); Blood,Urine 2+ (Negative); Color,Urine Yellow (Lt Yel-Yel); Glucose, Urine Negative (Negative); Ketones,Urine 3+ (Negative); Leukocyte Esterase,Urine Positive (Negative); Nitrite,Urine Negative (Negative); PH,Urine 7.5 (5.0-7.0); Protein,Urine 2+ (Neg - Trace); RBC,Urine 172 /hpf (0-3); Specific Gravity,Urine 1.033 (1.001-1.035); Squamous Epithelial Cell,Urine 137 /hpf (0-5); WBC,Urine 321 /hpf (0-5)
[2024-06-26 22:54] LABS: Clarity,Urine Turbid (Clear/Hazy)
[2024-06-26 23:04] LABS: Alanine Aminotransferase 17 U/L (10-49); Albumin, Serum 3.9 gm/dL (3.5-5.0); Albumin/Globulin Ratio 0.9 (1.2-2.2); Alcohol, Blood Medical < 3.0 mg/dL (0-10.0); Alkaline Phosphatase 88 U/L (46-116); Anion Gap 9 (7-16); Aspartate Amino Transferase 20 U/L (0-34); BUN/Creatinine Ratio 13 Ratio (12-20); Bilirubin,Total 0.3 mg/dL (0.3-1.2); Blood Urea Nitrogen 9 mg/dL (9-23); Calcium 9.7 mg/dL (8.3-10.6); Calcium (Corrected) 9.8 mg/dL (8.5-10.1); Carbon Dioxide 26.6 mMol/L (20.0-31.0); Chloride 99 mMol/L (98-107); Creatinine (Component) 0.7 mg/dL (0.6-1.3); Globulin 4.2 gm/dL (2.3-3.5); Glucose 127 mg/dL (74-106); Magnesium 1.9 mg/dL (1.6-2.6); Osmolality,Calculated 270 (275-295); Potassium 3.4 mMol/L (3.4-5.1); Sodium 135 mMol/L (136-145); Total Protein 8.1 gm/dL (5.7-8.2); Troponin I < 0.020 ng/mL (0.0-0.045); eGFR > 60 See Note
[2024-06-26 23:05] LABS: INR 1.1 (0.9-1.3); Partial Thromboplastin Time 29.1 Seconds (22.0-36.0); Prothrombin Time 11.6 Seconds (9.0-12.2)
[2024-06-26 23:05] LABS: Amphetamine/Methamp Scrn,U Positive (Negative); Barbiturate Screen,Urine Negative (Negative); Benzodiazepines Screen,Urine Negative (Negative); Benzoylecgonine Screen, Ur Negative (Negative); Fentanyl Screen,Urine Negative (Negative); Opiate Screen,Urine Positive (Negative); THC Screen,Urine Negative (Negative)
== END 2024-06-26 22:54 | disposition short-term general hospital (02) ==
LOC: SERX 22:26
PROVIDERS: Emergency Provider Emergency Medicine
DX: I63.342 Cerebral infarction due to thrombosis of left cerebellar artery (principal); G82.20 Paraplegia, unspecified; F17.200 Nicotine dependence, unspecified, uncomplicated
CPT/HCPCS: 36415; 70450; 80053; 80307; 80320; 81001; 83735; 84484; 85025; 85610; 85730; 93005; 99291; A9270; G0480

== ENCOUNTER 2024-08-04 09:30 | Emergency (ER) | payer OTHER, MEDICAID, SELFPAY ==
[2024-08-04 09:41] VITALS: BP 163/91; PULSE 67; RESP 18; TEMP 36.8; O2SAT 99
[2024-08-04 10:03] VITALS: BP 144/85; PULSE 60; PULSE 62; RESP 18; TEMP 36.8; O2SAT 94; O2SAT 99
[2024-08-04 10:08] VITALS: BMI 30.9
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
== END 2024-08-04 10:50 | disposition home or self-care (01) ==
LOC: SERX 10:56
PROVIDERS: Emergency Provider Emergency Medicine; PCP Family Medicine
DX: Z43.1 Encounter for attention to gastrostomy (principal); G82.20 Paraplegia, unspecified; S24.103S Unspecified injury at T7-T10 level of thoracic spinal cord, sequela; Z86.73 Personal history of transient ischemic attack (TIA), and cerebral infarction without residual deficits; Z86.711 Personal history of pulmonary embolism; W34.00XS Accidental discharge from unspecified firearms or gun, sequela
CPT/HCPCS: 99283

== ENCOUNTER → 2024-08-31 | Outpatient (CLI) | payer OTHER, MEDICAID, SELFPAY | END | disposition home or self-care (01) | PROVIDERS: PCP Family Medicine; Referring Provider Family Medicine; Visit Provider Student in an Organized Health Care Education/Training Program | DX: I96 Gangrene, not elsewhere classified (principal); T24.392A Burn of third degree of multiple sites of left lower limb, except ankle and foot, initial encounter; T24.391A Burn of third degree of multiple sites of right lower limb, except ankle and foot, initial encounter; L89.323 Pressure ulcer of left buttock, stage 3; S91.001A Unspecified open wound, right ankle, initial encounter; S91.301A Unspecified open wound, right foot, initial encounter; X58.XXXA Exposure to other specified factors, initial encounter; G82.20 Paraplegia, unspecified; Q89.01 Asplenia (congenital); D64.9 Anemia, unspecified | CPT/HCPCS: 11042; 11045; 17250; 99213; A9270; G0463 ==

== ENCOUNTER → 2024-09-13 | Outpatient (CLI) | payer OTHER, MEDICAID, SELFPAY | END | disposition home or self-care (01) | LOC: SWHD 14:39 | PROVIDERS: PCP Family Medicine; Referring Provider Family Medicine; Visit Provider Student in an Organized Health Care Education/Training Program | DX: I96 Gangrene, not elsewhere classified (principal); T24.392A Burn of third degree of multiple sites of left lower limb, except ankle and foot, initial encounter; T24.391A Burn of third degree of multiple sites of right lower limb, except ankle and foot, initial encounter; L89.323 Pressure ulcer of left buttock, stage 3; S91.001A Unspecified open wound, right ankle, initial encounter; S91.301A Unspecified open wound, right foot, initial encounter; X58.XXXA Exposure to other specified factors, initial encounter; G82.20 Paraplegia, unspecified; Q89.01 Asplenia (congenital); D64.9 Anemia, unspecified | CPT/HCPCS: 97597 ==

== ENCOUNTER → 2024-09-20 | Outpatient (CLI) | payer OTHER, MEDICAID, SELFPAY | END | disposition home or self-care (01) | LOC: SWHD 08:39 | PROVIDERS: PCP Family Medicine; Referring Provider Family Medicine; Visit Provider Student in an Organized Health Care Education/Training Program | DX: I96 Gangrene, not elsewhere classified (principal); T24.391A Burn of third degree of multiple sites of right lower limb, except ankle and foot, initial encounter; T24.392A Burn of third degree of multiple sites of left lower limb, except ankle and foot, initial encounter; S91.001A Unspecified open wound, right ankle, initial encounter; S91.301A Unspecified open wound, right foot, initial encounter; X58.XXXA Exposure to other specified factors, initial encounter; L89.323 Pressure ulcer of left buttock, stage 3; G82.20 Paraplegia, unspecified; Q89.01 Asplenia (congenital); D64.9 Anemia, unspecified | CPT/HCPCS: 11042; 97597; A9270 ==

== ENCOUNTER → 2024-09-27 | Outpatient (CLI) | payer OTHER, MEDICAID, SELFPAY | END | disposition home or self-care (01) | LOC: SWHD 08:27 | PROVIDERS: PCP Family Medicine; Referring Provider Family Medicine; Visit Provider Student in an Organized Health Care Education/Training Program | DX: I96 Gangrene, not elsewhere classified (principal); T24.391A Burn of third degree of multiple sites of right lower limb, except ankle and foot, initial encounter; T24.301A Burn of third degree of unspecified site of right lower limb, except ankle and foot, initial encounter; T24.392A Burn of third degree of multiple sites of left lower limb, except ankle and foot, initial encounter; S91.001A Unspecified open wound, right ankle, initial encounter; S91.301A Unspecified open wound, right foot, initial encounter; X58.XXXA Exposure to other specified factors, initial encounter; L89.323 Pressure ulcer of left buttock, stage 3; Q89.01 Asplenia (congenital); D64.9 Anemia, unspecified; G82.20 Paraplegia, unspecified; S24.103S Unspecified injury at T7-T10 level of thoracic spinal cord, sequela; W34.00XS Accidental discharge from unspecified firearms or gun, sequela | CPT/HCPCS: 11042; A9270 ==

== ENCOUNTER → 2024-10-04 | Outpatient (CLI) | payer MEDICARE, SELFPAY | END | disposition home or self-care (01) | LOC: SWHD 14:24 | PROVIDERS: PCP Family Medicine; Referring Provider Family Medicine; Visit Provider Student in an Organized Health Care Education/Training Program | DX: S91.001A Unspecified open wound, right ankle, initial encounter (principal); S91.301A Unspecified open wound, right foot, initial encounter; X58.XXXA Exposure to other specified factors, initial encounter; L89.323 Pressure ulcer of left buttock, stage 3; Q89.01 Asplenia (congenital); D64.9 Anemia, unspecified; G82.20 Paraplegia, unspecified; S24.103S Unspecified injury at T7-T10 level of thoracic spinal cord, sequela; W34.00XS Accidental discharge from unspecified firearms or gun, sequela | CPT/HCPCS: 11042; 97597; 17250; A9270 ==

== ENCOUNTER → 2024-11-08 | Outpatient (CLI) | payer MEDICARE, SELFPAY | END | disposition home or self-care (01) | LOC: SWHD 14:01 | PROVIDERS: PCP Family Medicine; Referring Provider Family Medicine; Visit Provider Surgery | DX: T24.302A Burn of third degree of unspecified site of left lower limb, except ankle and foot, initial encounter (principal); T24.301A Burn of third degree of unspecified site of right lower limb, except ankle and foot, initial encounter; S91.002A Unspecified open wound, left ankle, initial encounter; X58.XXXA Exposure to other specified factors, initial encounter; L89.323 Pressure ulcer of left buttock, stage 3; Q89.01 Asplenia (congenital); D64.9 Anemia, unspecified; G82.20 Paraplegia, unspecified; S24.103S Unspecified injury at T7-T10 level of thoracic spinal cord, sequela; X58.XXXS Exposure to other specified factors, sequela | CPT/HCPCS: 99215; G0463 ==

== ENCOUNTER → 2024-11-15 | Outpatient (CLI) | payer OTHER, SELFPAY | END | disposition home or self-care (01) | LOC: SWHD 13:45 | PROVIDERS: PCP Family Medicine; Referring Provider Family Medicine; Visit Provider Student in an Organized Health Care Education/Training Program | DX: L89.323 Pressure ulcer of left buttock, stage 3 (principal); L89.892 Pressure ulcer of other site, stage 2; Q89.01 Asplenia (congenital); D64.9 Anemia, unspecified; G82.20 Paraplegia, unspecified; S24.103S Unspecified injury at T7-T10 level of thoracic spinal cord, sequela; X58.XXXS Exposure to other specified factors, sequela | CPT/HCPCS: 99214; A9270; G0463 ==

== ENCOUNTER → 2024-11-18 | Outpatient (CLI) | payer OTHER, SELFPAY ==
--- NOTE | 2024-11-18 09:44 | XR_ITS ---
Examination: Esophagram standard Fluoroscopy 12 spot fluoroscopic images of the esophagus Date and time: November 18, 2024 1057 hours INDICATIONS: Removal feeding tube scheduled June 2024 FINDINGS: Patient swallowed thin barium with primary peristaltic esophageal waves noted Moderate intermittent gastroesophageal reflux 40% narrowing at the gastroesophageal junction with mucosal fold thickening Fluoroscopy 0.7 minute radiation dose 65.95 milligray 12 spot fluoroscopic films IMPRESSION: Moderate intermittent gastroesophageal reflux 40% narrowing with mucosal fold thickening at the gastroesophageal junction, consider reflux esophagitis
== END | disposition home or self-care (01) ==
PROVIDERS: PCP Family Medicine; Referring Provider Family Medicine; Visit Provider Family Medicine
DX: K21.9 Gastro-esophageal reflux disease without esophagitis (principal); K22.2 Esophageal obstruction
CPT/HCPCS: 74220; A4699

== ENCOUNTER → 2024-11-29 | Outpatient (CLI) | payer OTHER, SELFPAY | END | disposition home or self-care (01) | LOC: SWHD 13:49 | PROVIDERS: PCP Family Medicine; Referring Provider Family Medicine; Visit Provider Student in an Organized Health Care Education/Training Program | DX: L89.323 Pressure ulcer of left buttock, stage 3 (principal); L89.892 Pressure ulcer of other site, stage 2; Q89.01 Asplenia (congenital); D64.9 Anemia, unspecified; G82.20 Paraplegia, unspecified; S24.103S Unspecified injury at T7-T10 level of thoracic spinal cord, sequela; X58.XXXS Exposure to other specified factors, sequela | CPT/HCPCS: 17250 ==

== ENCOUNTER → 2024-12-13 | Outpatient (CLI) | payer OTHER, SELFPAY | END | disposition home or self-care (01) | LOC: SWHD 13:47 | PROVIDERS: PCP Family Medicine; Referring Provider Family Medicine; Visit Provider Student in an Organized Health Care Education/Training Program | DX: L89.323 Pressure ulcer of left buttock, stage 3 (principal); L89.892 Pressure ulcer of other site, stage 2; Q89.01 Asplenia (congenital); D64.9 Anemia, unspecified; G82.20 Paraplegia, unspecified; S24.103S Unspecified injury at T7-T10 level of thoracic spinal cord, sequela; X58.XXXS Exposure to other specified factors, sequela | CPT/HCPCS: 97597 ==

== ENCOUNTER → 2024-12-27 | Outpatient (CLI) | payer OTHER, SELFPAY | END | disposition home or self-care (01) | LOC: SWHD 14:24 | PROVIDERS: PCP Family Medicine; Referring Provider Family Medicine; Visit Provider Student in an Organized Health Care Education/Training Program | DX: L89.323 Pressure ulcer of left buttock, stage 3 (principal); Q89.01 Asplenia (congenital); D64.9 Anemia, unspecified; G82.20 Paraplegia, unspecified; X58.XXXS Exposure to other specified factors, sequela | CPT/HCPCS: 99212; A9270; G0463 ==

== ENCOUNTER → 2025-01-17 | Outpatient (CLI) | payer OTHER, SELFPAY | END | disposition home or self-care (01) | LOC: SWHD 13:50 | PROVIDERS: PCP Family Medicine; Referring Provider Family Medicine; Visit Provider Student in an Organized Health Care Education/Training Program | DX: L89.323 Pressure ulcer of left buttock, stage 3 (principal); Q89.01 Asplenia (congenital); D64.9 Anemia, unspecified; G82.20 Paraplegia, unspecified | CPT/HCPCS: 99212; G0463 ==

== ENCOUNTER → 2025-01-28 | Outpatient (CLI) | payer OTHER, SELFPAY | END | disposition home or self-care (01) | LOC: SWHD 13:54 | PROVIDERS: PCP Family Medicine; Referring Provider Family Medicine; Visit Provider Surgery | DX: L89.322 Pressure ulcer of left buttock, stage 2 (principal); Q89.01 Asplenia (congenital); D64.9 Anemia, unspecified; G82.20 Paraplegia, unspecified | CPT/HCPCS: 97597 ==

== ENCOUNTER → 2025-02-11 | Outpatient (CLI) | payer OTHER, SELFPAY | END | disposition home or self-care (01) | LOC: SWHD 15:43 | PROVIDERS: PCP Family Medicine; Referring Provider Family Medicine; Visit Provider Student in an Organized Health Care Education/Training Program | DX: L89.322 Pressure ulcer of left buttock, stage 2 (principal); Q89.01 Asplenia (congenital); D64.9 Anemia, unspecified; G82.20 Paraplegia, unspecified | CPT/HCPCS: 17250; A9270 ==

== ENCOUNTER → 2025-02-18 | Outpatient (CLI) | payer OTHER, SELFPAY | END | disposition home or self-care (01) | LOC: SWHD 13:30 | PROVIDERS: PCP Family Medicine; Referring Provider Family Medicine; Visit Provider Surgery | DX: L89.322 Pressure ulcer of left buttock, stage 2 (principal); Q89.01 Asplenia (congenital); D64.9 Anemia, unspecified; G82.20 Paraplegia, unspecified | CPT/HCPCS: 97597; A9270 ==

== ENCOUNTER → 2025-02-25 | Outpatient (CLI) | payer OTHER, SELFPAY | END | disposition home or self-care (01) | LOC: SWHD 14:28 | PROVIDERS: PCP Family Medicine; Referring Provider Family Medicine; Visit Provider Surgery | DX: L89.322 Pressure ulcer of left buttock, stage 2 (principal); Q89.01 Asplenia (congenital); D64.9 Anemia, unspecified; G82.20 Paraplegia, unspecified | CPT/HCPCS: 99213; A9270; G0463 ==

== ENCOUNTER → 2025-03-11 | Outpatient (CLI) | payer OTHER, SELFPAY | END | disposition home or self-care (01) | LOC: SWHD 13:07 | PROVIDERS: PCP Family Medicine; Referring Provider Family Medicine; Visit Provider Surgery | DX: L89.322 Pressure ulcer of left buttock, stage 2 (principal); Q89.01 Asplenia (congenital); D64.9 Anemia, unspecified; G82.20 Paraplegia, unspecified; R60.0 Localized edema | CPT/HCPCS: 99213; A9270; G0463 ==

== ENCOUNTER → 2025-04-08 | Outpatient (CLI) | payer OTHER, SELFPAY | END | disposition home or self-care (01) | LOC: SWHD 13:12 | PROVIDERS: PCP Family Medicine; Referring Provider Family Medicine; Visit Provider Surgery | DX: L89.322 Pressure ulcer of left buttock, stage 2 (principal); Q89.01 Asplenia (congenital); D64.9 Anemia, unspecified; G82.20 Paraplegia, unspecified; R60.0 Localized edema | CPT/HCPCS: 97597 ==

== ENCOUNTER → 2025-04-15 | Outpatient (CLI) | payer OTHER, SELFPAY | END | disposition home or self-care (01) | LOC: SWHD 13:38 | PROVIDERS: PCP Family Medicine; Referring Provider Family Medicine; Visit Provider Physician Assistant | DX: L89.322 Pressure ulcer of left buttock, stage 2 (principal); Q89.01 Asplenia (congenital); D64.9 Anemia, unspecified; G82.20 Paraplegia, unspecified; R60.0 Localized edema | CPT/HCPCS: 99213; G0463 ==

== ENCOUNTER → 2025-06-10 | Outpatient (CLI) | payer OTHER, SELFPAY | END | disposition home or self-care (01) | LOC: SWHD 14:00 | PROVIDERS: PCP Physician Assistant; Referring Provider Physician Assistant; Visit Provider Surgery | DX: L89.322 Pressure ulcer of left buttock, stage 2 (principal); L89.622 Pressure ulcer of left heel, stage 2; L89.621 Pressure ulcer of left heel, stage 1; S81.802A Unspecified open wound, left lower leg, initial encounter; S91.302A Unspecified open wound, left foot, initial encounter; S91.301A Unspecified open wound, right foot, initial encounter; X58.XXXA Exposure to other specified factors, initial encounter; Q89.01 Asplenia (congenital); D64.9 Anemia, unspecified; G82.20 Paraplegia, unspecified; R60.0 Localized edema | CPT/HCPCS: 97597; 97598 ×10; A9270 ==

== ENCOUNTER → 2025-06-27 | Outpatient (CLI) | payer OTHER, SELFPAY | END | disposition home or self-care (01) | LOC: SWHD 14:06 | PROVIDERS: PCP Family Medicine; Referring Provider Family Medicine; Visit Provider Student in an Organized Health Care Education/Training Program | DX: L89.322 Pressure ulcer of left buttock, stage 2 (principal); L89.622 Pressure ulcer of left heel, stage 2; L89.621 Pressure ulcer of left heel, stage 1; S81.802A Unspecified open wound, left lower leg, initial encounter; S91.302A Unspecified open wound, left foot, initial encounter; S91.301A Unspecified open wound, right foot, initial encounter; Q89.01 Asplenia (congenital); D64.9 Anemia, unspecified; G82.20 Paraplegia, unspecified; R60.0 Localized edema | CPT/HCPCS: 99214; A9270; G0463 ==